=== PATIENT | male | born 1990 | race Caucasian/White ===

== ENCOUNTER 2020-09-28 22:31 | Emergency (ER) | payer OTHER, SELFPAY ==
[2020-09-28] MEDS ORDERED: LIDOCAINE-MPF 1%, 5ML ONE (22:58)
== END 2020-09-28 22:37 ==
LOC: ED 22:32
DX: R22.9 Localized swelling, mass and lump, unspecified (principal); Z53.21 Procedure and treatment not carried out due to patient leaving prior to being seen by health care provider

== ENCOUNTER 2020-09-28 22:34 | Emergency (ER) | payer OTHER, SELFPAY ==
[~2020-09-28] VITALS: Ht 175.3 cm; Wt 77.6 kg
[2020-09-28 22:47] VITALS: BP 132/77
[2020-09-28] MEDS ORDERED: LIDOCAINE-MPF 1%, 5ML INFIL ONE (23:00)
--- NOTE | 2020-09-28 23:03 | NUR ---
Bedside set up for I/D
--- NOTE | 2020-09-28 23:39 | NUR ---
Pt to be dc, was i/d by JESSICA starr. Pt to return to ER if worse or concerns.
== END 2020-09-28 23:47 | disposition home or self-care (01) ==
LOC: ED 23:04
DX: L02.412 Cutaneous abscess of left axilla (principal); F17.200 Nicotine dependence, unspecified, uncomplicated
CPT/HCPCS: 10060; 99283